=== PATIENT | male | born 1985 | race Two or more races ===

== ENCOUNTER 2018-06-04 13:25 | Emergency (ER) | payer SELFPAY ==
[~2018-06-04] VITALS: Ht 175.3 cm; Wt 90.3 kg
[2018-06-04] MEDS ORDERED: LORAZEPAM 1 MG TABLET ONE (13:38)
--- NOTE | 2018-06-04 13:46 | NUR ---
BIBRA 61 C/O ANXIETY, PT ADMITS TO USING [facility] YESTERDAY. APPEARS ANXIOUS AND CONFUSED. SLOW TO RESPOND TO QUESTIONS. PT IS AOX4, AMB, VSS, RR EVEN AND UNLABORED. SKIN WARM TO TOUCH, DRY, INTACT. DENIES SOB, DIZZINESS, WEAKNESS. READY FOR EVAL.
[2018-06-04 13:50] LABS: BASOPHILS % (AUTO) 0.4 % (0.0-2.0); HEMATOCRIT 49 % (39-51); HEMOGLOBIN 16.8 g/dL (13.5-17.5); LYMPHOCYTES # (AUTO) 1.5 /CMM (0.8-4.8); LYMPHOCYTES % (AUTO) 11.9 % (20.0-44.0); MEAN CORPUSCULAR HGB CONC 34 g/dl (31.0-36.0); MEAN CORPUSCULAR VOLUME 87 fL (80-96); MONOCYTES # (AUTO) 0.5 /CMM (0.1-1.30); MONOCYTES % (AUTO) 3.6 % (2.0-12.0); NEUTROPHILS % (AUTO) 84.1 % (43.0-81.0); PLATELET COUNT (AUTO) 258 /CMM (150-450); RED BLOOD CELL COUNT(AUTO) 5.67 MIL/uL (4.5-6.0)
[2018-06-04] MEDS ORDERED: OLANZAPINE 10 MG VIAL IM ONE ×2 (13:50→14:00)
[2018-06-04 13:59] LABS: CALCIUM, SERUM 8.9 mg/dL (8.5-10.1); CARBON DIOXIDE 32 mmol/L (21-32); CHLORIDE 103 mmol/L (98-107); CREATININE 0.8 mg/dL (0.6-1.3); GLUCOSE 102 mg/dL (74-106); SODIUM SERUM 136 mmol/L (136-145); UREA NITROGEN, BLOOD 12 mg/dL (7-18)
[2018-06-04] MEDS ORDERED: LORAZEPAM 1 MG TABLET PO ONE (14:00)
[2018-06-04 14:05] LABS: ACETAMINOPHEN 0 ug/ml (10-30); ALANINE AMINOTRANSFERASE 28 U/L (12-78); ALCOHOL, BLOOD < 3 mg/dL (0-0); ALKALINE PHOSPHATASE 127 U/L (46-116); ASPARTATE AMINOTRANSFERASE 20 U/L (15-37); BILIRUBIN,DIRECT 0.1 mg/dL (0.0-0.2); BILIRUBIN,TOTAL 0.4 mg/dL (0.2-1.0); SALICYLATE 1.9 mg/dL (2.8-20.0); TOTAL PROTEIN, SERUM 7.3 g/dL (6.4-8.2)
--- NOTE | 2018-06-04 14:10 | NUR ---
ATTEMPTED TO GET URINE FROM PT. CAME OUT AND "FORGOT" TO URINATE IN THE CUP. MD AWARE.
--- NOTE | 2018-06-04 14:57 | NUR ---
Patient is resting comfortably in bed with eyes closed. Easily aroused. VSS
--- NOTE | 2018-06-04 16:40 | NUR ---
Patient is resting comfortably in bed with eyes closed. Easily aroused. VSS
--- NOTE | 2018-06-04 18:30 | NUR ---
Patient is resting comfortably in bed with eyes closed. Easily aroused. VSS
--- NOTE | 2018-06-04 20:49 | NUR ---
Patient is resting comfortably in bed with eyes closed. Easily aroused. VSS
--- NOTE | 2018-06-04 22:17 | NUR ---
PT ALERT, ASKING FOR FOOD. ASKED TO CALL HIS AUNT, HOWEVER NO SUCCESS. WILL TRY AGAIN LATER
--- NOTE | 2018-06-04 22:27 | NUR ---
PT REQUESTED TO GO HOME. NOTIFIED
--- NOTE | 2018-06-04 22:40 | NUR ---
Patient discharged to home in stable condition. Written and verbal after care instructions given. Patient verbalizes understanding of instruction.
[2018-06-04 23:05] VITALS: BP 116/78
== END 2018-06-04 22:40 | disposition home or self-care (01) ==
LOC: ER 13:29
DX: F41.9 Anxiety disorder, unspecified (principal); F15.10 Other stimulant abuse, uncomplicated; F28 Other psychotic disorder not due to a substance or known physiological condition
CPT/HCPCS: 36415; 80048-TC; 80076-TC; 84484-TC; 85025-TC; G0480; J3490